=== PATIENT | male | born 1995 | race Caucasian/White ===

== ENCOUNTER 2017-07-17 14:55 | Observation (INO) | payer OTHER ==
[~2017-07-17] VITALS: Ht 190.5 cm; Wt 66.9 kg
[2017-07-17] MEDS ORDERED: LEXAPRO 10MG10 MG PO (15:01)
[2017-07-17 15:26] LABS: BASO % 0.4 % (0.0-2.0); EOS % 0.2 % (0-4.0); GRAN # 6.4 (1.4-6.5); HEMATOCRIT 43.5 % (36.0-47.0); HEMOGLOBIN 15.4 g/dl (12.5-16.1); LYMPH # 2.5 (1.2-3.4); LYMPH % 26.1 % (20.0-51.0); MEAN CELL VOLUME 88 fl (80.0-95.0); MEAN CORPUSCULAR HEMOGLOBIN 31 pg (26.0-32.0); MEAN CORPUSCULAR HGB CONC 35 g/dl (33.0-37.0); MEAN PLATELET VOLUME 10.4 fl (7.4-10.4); MONO # 0.6 (0.1-0.6); MONO % 5.8 % (1.7-9.3); PLATELET COUNT 305 K/mm3 (130-400); RED BLOOD COUNT 4.95 M/mm3 (4.20-5.60); REDCELL DISTRIBUTION WIDTH-CV 11.9 % (11.5-14.5)
[2017-07-17 15:39] LABS: ALANINE AMINOTRANSFERASE 16 U/L (21-72); ALBUMIN 4.8 gm/dL (3.5-5.0); ALKALINE PHOSPHATASE 68 U/L (50-136); ANION GAP 22 mmol/L (7-16); AST,SGOT 26 U/L (15-37); BILIRUBIN,TOTAL 0.8 mg/dL (0.0-1.0); BLOOD UREA NITROGEN 10 mg/dL (9-20); CALCIUM 9.4 mg/dL (8.4-10.2); CARBON DIOXIDE 17 mmol/L (22-30); CHLORIDE 101 mmol/L (98-107); CREATININE, serum 1.07 mg/dL (0.66-1.25); GLUCOSE 164 mg/dL (74-106); POTASSIUM 3.9 mmol/L (3.4-5.0); SODIUM 140 mmol/L (137-145); TOTAL PROTEIN 7.9 gm/dL (6.4-8.2)
[2017-07-17 15:42] LABS: ALCOHOL(ethanol),MEDICAL < 10 mg/dL
[2017-07-17 15:53] LABS: PROLACTIN 50.8 ng/mL (3.7-17.9)
[2017-07-17 20:01] VITALS: BP 116/62; PULSE 66; TEMP 98.5
[2017-07-17 20:22] LABS: COLLECTION METHOD CLEAN CATCH
[2017-07-17 20:28] LABS: MUCOUS Present /lpf; PH 6 (5-8); SQUAMOUS EPITHELIAL None Seen /hpf; URINE APPEARANCE Clear; URINE BACTERIA None Seen /hpf; URINE BILIRUBIN Negative (NEGATIVE); URINE BLOOD 2+ (NEGATIVE); URINE COLOR Yellow; URINE GLUCOSE Negative (NEGATIVE); URINE KETONE Trace (NEGATIVE); URINE LEUKOCYTE ESTERASE Negative (NEGATIVE); URINE NITRATE Negative (NEGATIVE); URINE PROTEIN(semi-quant) 1+ (NEGATIVE); URINE RBC 0-2 /hpf; URINE UROBILINOGEN Negative (NEGATIVE)
[2017-07-17] MEDS ORDERED: PROTONIX 40MG T40 MG PO (20:43)
[2017-07-17 20:55] LABS: TRICYCLIC ANTIDEPRESS URINE NEGATIVE
[2017-07-17 23:15] VITALS: BP 115/54; PULSE 46; TEMP 99
[2017-07-18] VITALS (7 sets, daily range): BP systolic 94–116; BP diastolic 42–92; PULSE 53–71; TEMP 98.2–98.4
[2017-07-18 06:30] LABS: BASO % 0.4 % (0.0-2.0); EOS # 0.1 (0.0-0.7); EOS % 0.7 % (0-4.0); GRAN % 62.8 % (42.2-75.2); LYMPH # 2.4 (1.2-3.4); LYMPH % 25.4 % (20.0-51.0); MEAN CELL VOLUME 89 fl (80.0-95.0); MEAN CORPUSCULAR HGB CONC 35 g/dl (33.0-37.0); MEAN PLATELET VOLUME 10.8 fl (7.4-10.4); MONO % 10.4 % (1.7-9.3); PLATELET COUNT 219 K/mm3 (130-400)
[2017-07-18 06:33] LABS: HEMATOCRIT 36.4 % (36.0-47.0); HEMOGLOBIN 12.8 g/dl (12.5-16.1); MEAN CORPUSCULAR HEMOGLOBIN 31 pg (26.0-32.0)
[2017-07-18 06:38] LABS: CALCIUM 8.7 mg/dL (8.4-10.2); CREATININE, serum 1.12 mg/dL (0.66-1.25); POTASSIUM 3.8 mmol/L (3.4-5.0)
[2017-07-18] MEDS ORDERED: ROXICODONE 55 MG/TAB PO (15:02)
[2017-07-18] MEDS ORDERED: NORCO 325 MG-51 TAB PO (15:02)
[2017-07-18] MEDS ORDERED: KEPPRA 500MG500 MG PO (15:03)
== END 2017-07-18 17:00 | disposition home or self-care (01) ==
LOC: COL.ER 14:55 → MEDICAL 17:43
PROVIDERS: Emergency Medicine; Nurse Practitioner Family
DX: S01.511A Laceration without foreign body of lip, initial encounter (principal); S02.609A Fracture of mandible, unspecified, initial encounter for closed fracture; G40.909 Epilepsy, unspecified, not intractable, without status epilepticus; R00.1 Bradycardia, unspecified; E87.2 Acidosis; F32.9 Major depressive disorder, single episode, unspecified; Z82.0 Family history of epilepsy and other diseases of the nervous system
CPT/HCPCS: A9585; C9113; G0378; J1953; J2060; J2270; J2405; J7030

== ENCOUNTER 2018-04-21 02:29 | Emergency (ER) | payer OTHER ==
[~2018-04-21] VITALS: Ht 190.5 cm; Wt 70.5 kg
[~2018-04-21 02:29] MED LIST: KEPPRA 500MG500 MG PO; LEXAPRO 10MG10 MG PO; NORCO 325 MG-51 TAB PO; PROTONIX 40MG T40 MG PO; ROXICODONE 55 MG/TAB PO
[2018-04-21 02:34] VITALS: BP 127/86; PULSE 95; TEMP 98.4
== END 2018-04-21 02:57 | disposition left against medical advice (07) ==
LOC: COL.ER 02:29
DX: R10.31 Right lower quadrant pain (principal)

== ENCOUNTER → 2019-10-17 | Outpatient (CLI) | payer BC | LOC: ZCOL.LAB 14:00 | DX: M79.10 Myalgia, unspecified site (principal); R50.9 Fever, unspecified; Z20.828 Contact with and (suspected) exposure to other viral communicable diseases ==